=== PATIENT | female | born 1945 | race Two or more races ===

== ENCOUNTER 2020-12-25 19:02 | Inpatient (IN) | payer MEDICARE, MEDICAID ==
[~2020-12-25] VITALS: Ht 160 cm; Wt 62.4 kg
[2020-12-25 20:21] LABS: Basophils # (auto) 0.1 10 ^3/uL (0-0.2); Basophils % (auto) 0.8 % (0.0-2.0); Eosinophils # (auto) 0 10 ^3/uL (0-0.8); Eosinophils % (auto) 0.6 % (0.0-7.0); Hematocrit 45.8 % (36.0-46.0); Hemoglobin 15.4 g/dL (12.2-16.2); Lymphocytes # (auto) 2.1 10 ^3/uL (0.4-5.4); Lymphocytes % (auto) 28.6 % (10.0-50.0); Mean Corpuscular Hemoglobin 31.8 pg (28.0-32.0); Mean Corpuscular Hgb Conc. 33.7 g/dL (32.0-36.0); Mean Corpuscular Volume 94.2 fL (80.0-100.0); Monocytes # (auto) 0.5 10 ^3/uL (0-1.3); Monocytes % (auto) 7.2 % (0.0-12.0); Neutrophils # (auto) 4.6 10 ^3/uL (1.6-8.6); Neutrophils % (auto) 62.8 % (37.0-80.0); Nucleated Red Blood Cells % 0.3 %; Platelet Count (auto) 350 10^3/uL (140-450); Red Blood Cells 4.86 10^6/uL (4.0-5.20); Red Cell Distribution Width 14.4 % (11.8-14.3); White Blood Cell 7.4 10^3/uL (4.4-10.8)
[2020-12-25] MEDS ORDERED: ONDANSETRON HCL 4 MG/2 ML VIAL IV ONE (20:30)
[2020-12-25] MEDS ORDERED: MORPHINE SULF INJ 2 MG/ML SYRINGE 1ML IV ONE (20:30)
[2020-12-25 20:37] LABS: INR 1.07 (0.9-1.15); Partial Thromboplastin Time 25.9 sec (23.0-31.2)
[2020-12-25 20:39] LABS: Albumin 4.3 g/dL (3.4-5.0); Anion Gap 8 (5-15); Blood Urea Nitrogen 19 mg/dL (7-18); Calcium 10.6 mg/dL (8.5-10.1); Carbon Dioxide 29 mmol/L (21-32); Chloride 101 mmol/L (98-107); Glucose 138 mg/dL (74-106); Magnesium 2.3 mg/dL (1.6-2.6); Potassium 3.2 mmol/L (3.5-5.1); Sodium 138 mmol/L (136-145)
[2020-12-25 20:43] LABS: Alanine Aminotransferase 15 U/L (13-56); Alkaline Phosphatase 60 U/L (45-117); Aspartate Aminotransferase 20 U/L (15-37); Bilirubin, Total 0.4 mg/dL (0.2-1.0); GFR African American 45 mL/min; GFR Non-African American 37 mL/min
[2020-12-25] MEDS ORDERED: cloNIDine HCL 0.1 MG TAB PO ONE (21:00)
[2020-12-25] MEDS ORDERED: POTASSIUM CHL 20 Meq TABLET PO ONE (21:45)
[2020-12-25] MEDS ORDERED: MORPHINE SULF INJ 2 MG/ML SYRINGE 1ML IV PRN (22:30)
[2020-12-25] MEDS ORDERED: ATORVASTATIN 20 MG TAB PO ONE (22:30)
[2020-12-25] MEDS ORDERED: cloNIDine HCL 0.1 MG TAB PO PRN (22:30)
[2020-12-25] MEDS ORDERED: METOPROLOL TARTRATE 25 MG TAB PO ONE (22:30)
[2020-12-25] MEDS ORDERED: NITROGLYCERIN 0.4 MG SL TAB SL PRN (22:30)
[2020-12-25] MEDS ORDERED: ONDANSETRON HCL 4 MG/2 ML VIAL IV PRN (22:30)
[2020-12-25] MEDS: TEMAZEPAM 15 MG CAP PO PRN (22:51)
[2020-12-25] MEDS ORDERED: DEXTROSE (50%) 50ML SYRG IV PRN (23:00)
[2020-12-25 23:26] LABS: Cholesterol 138 mg/dL (< 200)
[2020-12-25 23:29] LABS: HDL Cholesterol 55 mg/dL (40-59); LDL Cholesterol 67 mg/dL (< 100); Triglycerides 95 mg/dL (< 150)
[2020-12-26 00:45] VITALS: BP 117/76
[2020-12-26] MEDS: ACETAMINOPHEN 325 MG TAB PO PRN ×2 (01:06→12:42)
[2020-12-26] MEDS ORDERED: NIT01P TD (02:52)
[2020-12-26] MEDS ORDERED: FENO5TAB PO (02:52)
[2020-12-26] MEDS ORDERED: TRAZ50TA2 PO (02:52)
[2020-12-26] MEDS ORDERED: SIMV80TA2 PO (02:52)
[2020-12-26] MEDS ORDERED: INSU1INJ19 SC (02:52)
[2020-12-26] MEDS ORDERED: CHOL20007 OR (02:52)
[2020-12-26] MEDS ORDERED: LIRA18IN2 SUBCUT (02:52)
[2020-12-26] MEDS ORDERED: ALLO-52 PO (02:52)
[2020-12-26] MEDS ORDERED: CYAN1TAB11 PO (02:52)
[2020-12-26] MEDS ORDERED: ASPI-543 PO (02:52)
[2020-12-26] MEDS ORDERED: LEVE500T32 PO (02:52)
[2020-12-26] MEDS ORDERED: NIF10C PO (02:52)
[2020-12-26] MEDS ORDERED: NIFE10CA3 PO (02:52)
[2020-12-26] MEDS ORDERED: INSU100I49 SC (02:52)
[2020-12-26 05:00] VITALS: BP 114/72
[2020-12-26 05:31] LABS: Basophils # (auto) 0.1 10 ^3/uL (0-0.2); Basophils % (auto) 0.7 % (0.0-2.0); Eosinophils # (auto) 0.2 10 ^3/uL (0-0.8); Eosinophils % (auto) 1.8 % (0.0-7.0); Hematocrit 38.5 % (36.0-46.0); Lymphocytes # (auto) 3.9 10 ^3/uL (0.4-5.4); Lymphocytes % (auto) 47.3 % (10.0-50.0); Mean Corpuscular Hemoglobin 31.9 pg (28.0-32.0); Mean Corpuscular Hgb Conc. 33.8 g/dL (32.0-36.0); Mean Corpuscular Volume 94.4 fL (80.0-100.0); Monocytes # (auto) 0.7 10 ^3/uL (0-1.3); Monocytes % (auto) 8.9 % (0.0-12.0); Neutrophils # (auto) 3.4 10 ^3/uL (1.6-8.6); Neutrophils % (auto) 41.3 % (37.0-80.0); Nucleated Red Blood Cells % 0.2 %; Platelet Count (auto) 314 10^3/uL (140-450); Red Blood Cells 4.08 10^6/uL (4.0-5.20); Red Cell Distribution Width 14.1 % (11.8-14.3); White Blood Cell 8.2 10^3/uL (4.4-10.8)
[2020-12-26 05:53] LABS: BUN/Creatinine Ratio 12.5; Calcium 9.3 mg/dL (8.5-10.1); Potassium 3.1 mmol/L (3.5-5.1)
[2020-12-26] MEDS: ACCU-CHEK COMFORT CURVE STRIP VI SCH ×4 (06:26→21:36)
[2020-12-26] MEDS: InsuLIN REG 1unit/0.01ml Soln (100units/ml) SC SCH ×4 (06:27→21:40)
[2020-12-26] MEDS ORDERED: ADENOSINE 50 MG in GIVE UN-DILUTED 0 ML IV ONE (08:45)
[2020-12-26 09:00] VITALS: BP 111/82
[2020-12-26] MEDS ORDERED: PANTOPRAZOLE 40 MG TAB PO SCH (10:00)
[2020-12-26] MEDS: METOPROLOL TARTRATE 25 MG TAB PO SCH ×2 (10:00→21:36)
[2020-12-26] MEDS: amLODIPine BESYLATE 5 MG TAB PO SCH (10:00)
[2020-12-26] MEDS ORDERED: ASPirin 81 mg TAB PO ONE ×2 (11:00)
[2020-12-26] MEDS ORDERED: POTASSIUM CHL 20 Meq TABLET PO ONE (11:15)
[2020-12-26 12:56] VITALS: BP 114/76
[2020-12-26 17:00] VITALS: BP 135/96
[2020-12-26] MEDS: ATORVASTATIN 20 MG TAB PO SCH (21:35)
[2020-12-26] MEDS ORDERED: ATORVASTATIN 20 MG TAB PO SCH (22:00)
[2020-12-26 22:25] VITALS: BP 153/93
[2020-12-27] MEDS: TEMAZEPAM 15 MG CAP PO PRN ×2 (00:49→22:09)
[2020-12-27] MEDS: ACETAMINOPHEN 325 MG TAB PO PRN ×2 (00:52→08:00)
[2020-12-27 05:10] VITALS: BP 153/83
[2020-12-27] MEDS: InsuLIN REG 1unit/0.01ml Soln (100units/ml) SC SCH ×4 (06:20→21:33)
[2020-12-27] MEDS: ACCU-CHEK COMFORT CURVE STRIP VI SCH ×4 (06:20→21:25)
[2020-12-27 06:21] LABS: BUN/Creatinine Ratio 21.4; Calcium 9.3 mg/dL (8.5-10.1); Magnesium 2.4 mg/dL (1.6-2.6); Potassium 3.9 mmol/L (3.5-5.1)
[2020-12-27 08:00] VITALS: BP 167/91
[2020-12-27] MEDS ORDERED: HYDR-4798 PO (08:04)
[2020-12-27 09:00] VITALS: BP 167/91
[2020-12-27] MEDS: ASPirin 81 mg TAB PO SCH (09:24)
[2020-12-27] MEDS: amLODIPine BESYLATE 5 MG TAB PO SCH (09:24)
[2020-12-27] MEDS: METOPROLOL TARTRATE 25 MG TAB PO SCH ×2 (09:25→21:25)
[2020-12-27 13:00] VITALS: BP 123/67
[2020-12-27] MEDS: HYDROcodone-ACET 10/325MG TAB PO PRN ×2 (14:15→22:10)
[2020-12-27 17:00] VITALS: BP 155/94
[2020-12-27] MEDS: ATORVASTATIN 20 MG TAB PO SCH (21:24)
[2020-12-27 22:24] VITALS: BP 167/94
[2020-12-28 05:24] VITALS: BP 156/91
[2020-12-28] MEDS: ACCU-CHEK COMFORT CURVE STRIP VI SCH ×2 (06:11→12:19)
[2020-12-28] MEDS: HYDROcodone-ACET 10/325MG TAB PO PRN (06:12)
[2020-12-28] MEDS: InsuLIN REG 1unit/0.01ml Soln (100units/ml) SC SCH ×2 (06:14→12:20)
[2020-12-28 08:00] VITALS: BP 130/76
[2020-12-28 08:53] VITALS: BP 130/76
[2020-12-28] MEDS: ASPirin 81 mg TAB PO SCH (09:39)
[2020-12-28] MEDS: amLODIPine BESYLATE 5 MG TAB PO SCH (09:40)
[2020-12-28] MEDS ORDERED: METOPROLOL TARTRATE 25 MG TAB PO SCH (10:00)
[2020-12-28 12:37] VITALS: BP 160/85
== END 2020-12-28 15:25 | disposition home or self-care (01) | DRG 203 ==
LOC: EDBD 19:02 → ER 19:05 → EDBD 22:26 → TELE 22:26 → TELE-WESTW 23:25
PROVIDERS: ADMIT Nurse Practitioner; ATTEND Internal Medicine
DX: R07.89 Other chest pain (principal); E11.22 Type 2 diabetes mellitus with diabetic chronic kidney disease; I31.3 Pericardial effusion (noninflammatory); E87.6 Hypokalemia; I12.9 Hypertensive chronic kidney disease with stage 1 through stage 4 chronic kidney disease, or unspecified chronic kidney disease; Z20.822 Contact with and (suspected) exposure to COVID-19; Z88.0 Allergy status to penicillin; I70.0 Atherosclerosis of aorta; Z79.4 Long term (current) use of insulin; Z82.49 Family history of ischemic heart disease and other diseases of the circulatory system; E78.5 Hyperlipidemia, unspecified; Z79.82 Long term (current) use of aspirin; N18.32 Chronic kidney disease, stage 3b
CPT/HCPCS: 36415; 70450; 71045; 78452; 80048; 80053; 80061; 82306; 82962; 83036; 83735; 83880; 84132; 84443; 84484; 85025; 85610; 85730; 87426; 93005; 93017; 93306; 96365; 96375; G0378; J0153; J1815; J2405